=== PATIENT | female | born 1950 | race Caucasian/White ===

== ENCOUNTER 2016-12-02 23:35 | Inpatient (IN) | payer MEDICARE, OTHER ==
[2016-12-03] MEDS ORDERED: HYDROmorphone 1 MG/ML SYRINGE IVP STA ×2 (00:08→01:55)
[2016-12-03] MEDS ORDERED: HYDROmorphone 1 MG/ML SYRINGE ONE ×2 (00:10→01:55)
[2016-12-03] MEDS ORDERED: IOPAMIDOL-300 100 ML VIAL IVP ONE (01:08)
[2016-12-03] MEDS ORDERED: MAGNESIUM HYDROXIDE 2,400 MG/30 ML UDC NG SCH (02:12)
[2016-12-03] MEDS ORDERED: ALBUTEROL NEB 2.5 MG/3 ML INH PRN (02:45)
[2016-12-03] MEDS: LACTATED RINGERS 1,000 ML IV SCH ×3 (02:56→18:18)
[2016-12-03] MEDS ORDERED: hydrALAZINE INJ 20 MG/ML VIAL IVP PRN (03:12)
[2016-12-03] MEDS: INSULIN REGULAR HUMAN 100 UNIT/1 ML 10 ML MDV SUBQ SCH ×5 (03:20→23:53)
[2016-12-03] MEDS: SODIUM CHLORIDE FLUSH 0.9% 10 ML SYRINGE IVP SCH ×3 (05:30→21:17)
[2016-12-03] MEDS ORDERED: INSULIN REGULAR HUMAN 100 UNIT/1 ML 10 ML MDV SUBQ SCH (06:00)
[2016-12-03] MEDS: PANTOPRAZOLE 40 MG VIAL IVP SCH (06:43)
[2016-12-03] MEDS: MORPHINE 2 MG/ML SYRINGE IVP PRN ×4 (06:49→16:56)
[2016-12-03] MEDS ORDERED: FLUTICASONE NASAL SPRAY NAS SCH (09:00)
[2016-12-03] MEDS ORDERED: FLUTICASONE IH SCH (09:00)
[2016-12-03] MEDS ORDERED: SALMETEROL IH SCH (09:00)
[2016-12-03] MEDS: SODIUM CHLORIDE FLUSH 0.9% 10 ML SYRINGE IVP PRN (09:03)
[2016-12-03] MEDS: FLUTICASONE NASAL SPRAY NAS SCH (09:04)
[2016-12-03] MEDS: BUDESONIDE 0.5 MG/2 ML NEB INH SCH ×2 (10:15→22:09)
[2016-12-03] MEDS: FORMOTEROL FUMARATE NEB 20 MCG/2 ML INH SCH ×2 (10:16→22:10)
[2016-12-03] MEDS: ONDANSETRON 4 MG/2 ML VIAL IVP PRN ×2 (11:19→18:51)
[2016-12-03] MEDS ORDERED: PHENOL THROAT SPRAY 177 ML MM ONE (14:07)
[2016-12-03] MEDS: HEPARIN 5,000 UNIT/ML VIAL SUBQ SCH (20:36)
[2016-12-04] MEDS: SODIUM CHLORIDE FLUSH 0.9% 10 ML SYRINGE IVP SCH ×3 (06:16→21:45)
[2016-12-04] MEDS: LACTATED RINGERS 1,000 ML IV SCH ×3 (06:20→23:44)
[2016-12-04] MEDS: SODIUM CHLORIDE FLUSH 0.9% 10 ML SYRINGE IVP PRN (06:21)
[2016-12-04] MEDS: PANTOPRAZOLE 40 MG VIAL IVP SCH (06:21)
[2016-12-04] MEDS: INSULIN REGULAR HUMAN 100 UNIT/1 ML 10 ML MDV SUBQ SCH ×3 (06:25→18:20)
[2016-12-04] MEDS: FORMOTEROL FUMARATE NEB 20 MCG/2 ML INH SCH ×2 (08:00→19:00)
[2016-12-04] MEDS: BUDESONIDE 0.5 MG/2 ML NEB INH SCH ×2 (08:00→19:00)
[2016-12-04] MEDS: FLUTICASONE NASAL SPRAY NAS SCH (09:50)
[2016-12-04] MEDS: HEPARIN 5,000 UNIT/ML VIAL SUBQ SCH ×2 (09:50→21:43)
[2016-12-04] MEDS ORDERED: ACETAMINOPHEN 1,000 MG/100 ML 100 ML IV PRN (14:00)
[2016-12-05] MEDS: INSULIN REGULAR HUMAN 100 UNIT/1 ML 10 ML MDV SUBQ SCH ×3 (00:21→12:01)
[2016-12-05] MEDS: LACTATED RINGERS 1,000 ML IV SCH (02:19)
[2016-12-05] MEDS: SODIUM CHLORIDE FLUSH 0.9% 10 ML SYRINGE IVP SCH ×2 (05:54→14:29)
[2016-12-05] MEDS: PANTOPRAZOLE 40 MG VIAL IVP SCH (06:09)
[2016-12-05] MEDS: SODIUM CHLORIDE FLUSH 0.9% 10 ML SYRINGE IVP PRN (06:09)
[2016-12-05] MEDS ORDERED: BISACODYL 10 MG SUPP PR ONE ×2 (08:12)
[2016-12-05] MEDS ORDERED: LACTULOSE 10 GM /15 ML UDC PO ONE (08:12)
[2016-12-05] MEDS ORDERED: GLYCERIN ADULT SUPP PR ONE (08:12)
[2016-12-05] MEDS ORDERED: SALINE ENEMA 133 ML BOTTLE RC ONE (08:12)
[2016-12-05] MEDS ORDERED: MAGNESIUM HYDROXIDE 2,400 MG/30 ML UDC PO ONE (08:12)
[2016-12-05] MEDS ORDERED: MAGNESIUM CITRATE 296 ML BOTTLE PO ONE (08:12)
[2016-12-05] MEDS: FORMOTEROL FUMARATE NEB 20 MCG/2 ML INH SCH (08:15)
[2016-12-05] MEDS: BUDESONIDE 0.5 MG/2 ML NEB INH SCH (08:15)
[2016-12-05] MEDS ORDERED: POLYETHYLENE GLYCOL 3350 17 GM PACKET PO SCH (09:00)
[2016-12-05] MEDS ORDERED: DOCUSATE SODIUM 250 MG CAPSULE PO SCH (09:00)
[2016-12-05] MEDS ORDERED: SENNA 8.6 MG TABLET PO SCH ×2 (09:00)
[2016-12-05] MEDS: HEPARIN 5,000 UNIT/ML VIAL SUBQ SCH (09:50)
[2016-12-05] MEDS: FLUTICASONE NASAL SPRAY NAS SCH (09:52)
== END 2016-12-05 15:20 | disposition home or self-care (01) | DRG 390 ==
DX: K56.5 Intestinal adhesions [bands] with obstruction (postinfection) (principal); K56.60 Unspecified intestinal obstruction; E11.9 Type 2 diabetes mellitus without complications; I10 Essential (primary) hypertension; E78.5 Hyperlipidemia, unspecified; G47.33 Obstructive sleep apnea (adult) (pediatric); J45.909 Unspecified asthma, uncomplicated; Z90.710 Acquired absence of both cervix and uterus; Z79.82 Long term (current) use of aspirin; Z79.84 Long term (current) use of oral hypoglycemic drugs

== ENCOUNTER 2017-05-31 10:01 | Day surgery (SDC) | payer MEDICARE, OTHER ==
[2017-05-31] MEDS ORDERED: MIDAZOLAM 2 MG/2 ML VIAL IVP ONE (10:02)
[2017-05-31] MEDS ORDERED: fentaNYL 100 MCG/2 ML VIAL IVP ONE (10:02)
[2017-05-31] MEDS ORDERED: LACTATED RINGERS 1,000 ML IV ONE (10:44)
[2017-05-31 14:18] VITALS: BP 134/68
== END 2017-05-31 10:02 | disposition home or self-care (01) ==
LOC: SDS 10:01
PROVIDERS: ATTEND Surgery
PROC: 0DBL8ZX Excision of Transverse Colon, Via Natural or Artificial Opening Endoscopic, Diagnostic (ICD-10-PCS; principal; 2017-05-31 11:15)
DX: D12.3 Benign neoplasm of transverse colon (principal); K57.90 Diverticulosis of intestine, part unspecified, without perforation or abscess without bleeding; K64.8 Other hemorrhoids; E11.9 Type 2 diabetes mellitus without complications; J45.909 Unspecified asthma, uncomplicated; G47.30 Sleep apnea, unspecified; Z79.82 Long term (current) use of aspirin; I10 Essential (primary) hypertension; E78.00 Pure hypercholesterolemia, unspecified; Z79.84 Long term (current) use of oral hypoglycemic drugs
CPT/HCPCS: 45380; J7120

== ENCOUNTER 2017-08-06 09:13 | Outpatient (CLI) | payer MEDICARE, OTHER | END 2017-08-06 09:14 | disposition home or self-care (01) | LOC: SC 09:13 | PROVIDERS: ATTEND Internal Medicine Pulmonary Disease | DX: G47.33 Obstructive sleep apnea (adult) (pediatric) (principal) | CPT/HCPCS: 99213; G0463; 99212 ==

== ENCOUNTER 2018-07-08 12:15 | Emergency (ER) | payer MEDICARE, OTHER ==
--- NOTE | 2018-07-08 13:02 | XRAY Report ---
Reason: crush injury to lt index finger Procedure Date: 07/08/2018 Accession Number: [id number] / [id number] Procedure: XR - Finger(s) LT CPT Code: FULL RESULT: EXAM: LEFT DIGIT RADIOGRAPHY EXAM DATE: 07/08/2018 12:35 PM. CLINICAL HISTORY: Crush injury to left index finger. COMPARISON: None. TECHNIQUE: 3 views. FINDINGS: Bones: Normal. No fracture or bone lesion. Joints: Mild degenerative changes of the DIP joint. Soft Tissues: There is deformity and laceration of the nailbed and probable laceration of the volar finger pad. There are a few particulate radiodensities noted volar and dorsal tissues of the distal finger consistent with debris. IMPRESSION: Distal soft tissue injury including deformity of the nailbed. No associated underlying fracture. RADIA
--- NOTE | 2018-07-08 13:06 | ED Physician Documentation ---
PD HPI UPPER EXT INJURY - Stated complaint Stated Complaint: LFT INDEX FINGER VS DOOR - Chief complaint Chief Complaint: Laceration - History obtained from History obtained from: Patient - History of Present Illness Location: Left, Finger Type of injury: Crush (got caught in door, with injury just to the end of the finger.) Where injury occurred: Home Timing - onset: Today Timing - details: Abrupt onset Worsened by: Palpating Associated symptoms: No: Weakness, Numbness Similar symptoms before: Has not had sx before Recently seen: Not recently seen Review of Systems Neurologic: denies: Focal weakness, Numbness PD PAST MEDICAL HISTORY - Past Medical History Past Medical History: Yes Cardiovascular: Hypertension Respiratory: Asthma Endocrine/Autoimmune: Type 2 diabetes GI: Chronic constipation : None HEENT: None Psych: None Musculoskeletal: Osteoarthritis Derm: None - Past Surgical History Past Surgical History: Yes /GOLF [employer]ER: section, Hysterectomy HEENT: Tonsil/Adenoidectomy - Present Medications Home Medications: Ambulatory Orders Medication Instructions Recorded Confirmed Aspirin [Aspir 81] 81 mg PO DAILY 01/26/13 07/08/18 Fluticasone [Flonase] 1 sprays TERRANCE DAILY 01/26/13 07/08/18 Fluticasone/Salmeterol [Advair 1 each IH DAILY 01/26/13 07/08/18 250-50 Diskus] Multivitamin [Multi-Vitamin Daily] 1 each PO DAILY 01/26/13 07/08/18 hydroCHLOROthiazide [Hydrodiuril] 25 mg PO DAILY 01/26/13 07/08/18 Losartan [Cozaar] 100 mg PO DAILY 12/02/16 07/08/18 Montelukast Sodium 10 mg PO QPM 12/02/16 07/08/18 Sitagliptin Phos/Metformin HCl 1 each PO BID 12/02/16 07/08/18 [Janumet 50-1,000 mg Tablet] Fexofenadine HCl 180 mg PO DAILY 12/03/16 07/08/18 Atorvastatin Calcium [Lipitor] 40 mg PO QPM 12/04/16 07/08/18 Polyethylene Glycol 3350 [Miralax] 17 gm PO DAILY PRN 12/04/16 07/08/18 Loratadine [Claritin] 10 mg PO DAILY 07/08/18 07/08/18 - Allergies Allergies/Adverse Reactions: Allergies Allergy/AdvReac Type Severity Reaction Status Date / Time No Known Drug Allergies Allergy Verified 12/03/16 00:06 - Social History Does the pt smoke?: No Smoking Status: Never smoker Does the pt drink ETOH?: No Does the pt have substance abuse?: No - Immunizations Immunizations are current?: Yes - POLST Patient has POLST: No PD ED PE NORMAL - Vitals Vital signs reviewed: Yes - General General: Alert and oriented X 3, No acute distress, Well developed/nourished - Derm Derm: Normal color, Warm and dry - Extremities Extremities: Other (left index finger tip at nailbed with horizontal lac that goes through nail side to side with some looseness of distal half of the nail. No injury to the nychial fold. Lac at the end of the nailbed with slight gapping of the skin edges. No FB. ) - Neuro Neuro: Alert and oriented X 3, No motor deficit, No sensory deficit Results - Vitals Vitals: Oxygen O2 Source Room air Procedures - Laceration (location) left index finger tip Length in cm: 1 Wound type: Linear, Into subcut fat Neurovascular status: Sensory intact, Motor intact Tendon involvement: No: Tendon Injury Anesthesia: Lidocaine 2% (digital block) Wound Preparation: Irrigated copiously NS Skin layer closure: Nylon, Interrupted, Size #-0 - enter number (4), Sutures - enter # (4) Other: Patient tolerated well, No complications, Neurovascular intact, Dressing applied, Tetanus booster given Complexity: Simple PD MEDICAL DECISION MAKING - ED course Complexity details: considered differential (laceration across mid nailbed with distal half of nail . Lac goes to end of nailbed too. Repair of it with nail tacked down to give healing structure of the bed. ), d/w patient Departure - Departure Disposition: 01 Home, Self Care Clinical Impression: Crush injury to finger Qualifiers: Encounter type: initial encounter Qualified Code(s): S67.10XA - Crushing injury of unspecified finger(s), initial encounter Nailbed laceration, finger Qualifiers: Encounter type: initial encounter Qualified Code(s): S61.319A - Laceration without foreign body of unspecified finger with damage to nail, initial encounter Condition: Stable Record reviewed to determine appropriate education?: Yes Instructions: ED Laceration Hand Follow-Up: JACQUELYN BENITEZ [Primary Care Provider] - Comments: There are very pinpoint avulsion fractures off the bone at the tip of the finger. These need specific treatment and are not in the joint space and should heal without consequence. The sutures should stay in for about 10 days or so to allow the nailbed to heal so that the new nail growth will come out on a smooth track. It is okay to wash and shower. Clean off the wound twice a day with soap and water, or peroxide and water. Apply some antibiotic ointment to it to keep it moist. Also to watch for signs of infection such as purulence, redness or increasing pain. Return to your primary care or the ER at the specified time for suture removal. Tylenol or ibuprofen if needed for pain. Discharge Date/Time: 07/08/18 14:34
[2018-07-08] MEDS ORDERED: LIDOCAINE 2% 10 ML MDV SUBQ STA (13:10)
[2018-07-08] MEDS ORDERED: TETANUS/DIPHTHERIA/PERTUSSIS 0.5 ML SYRINGE IM ONE (14:21)
[2018-07-08 14:36] VITALS: BP 168/88
== END 2018-07-08 14:34 | disposition home or self-care (01) ==
LOC: ED 12:15
DX: S61.311A Laceration without foreign body of left index finger with damage to nail, initial encounter (principal); S67.191A Crushing injury of left index finger, initial encounter; S62.661A Nondisplaced fracture of distal phalanx of left index finger, initial encounter for closed fracture; W23.1XXA Caught, crushed, jammed, or pinched between stationary objects, initial encounter; Y92.009 Unspecified place in unspecified non-institutional (private) residence as the place of occurrence of the external cause; I10 Essential (primary) hypertension; E11.9 Type 2 diabetes mellitus without complications; Z79.82 Long term (current) use of aspirin; Z79.84 Long term (current) use of oral hypoglycemic drugs; Z23 Encounter for immunization
CPT/HCPCS: 12001; 73140; 99282; 99283

== ENCOUNTER 2018-08-21 08:41 | Outpatient (CLI) | payer MEDICARE, OTHER | END 2018-08-21 08:42 | disposition home or self-care (01) | LOC: SC 08:41 | PROVIDERS: ATTEND Nurse Practitioner Family | DX: G47.33 Obstructive sleep apnea (adult) (pediatric) (principal) | CPT/HCPCS: 99214; G0463; 99212 ==

== ENCOUNTER 2019-02-26 16:11 | Outpatient (CLI) | payer MEDICARE, OTHER | END 2019-02-26 16:12 | disposition home or self-care (01) | LOC: SC 16:11 | PROVIDERS: ATTEND Nurse Practitioner Family | DX: G47.33 Obstructive sleep apnea (adult) (pediatric) (principal) | CPT/HCPCS: 99213; G0463; 99212 ==

== ENCOUNTER 2019-05-30 08:50 | Day surgery (SDC) | payer MEDICARE, OTHER ==
[2019-05-30] MEDS ORDERED: CEFAZOLIN SODIUM IN 0.9 % NACL 2 GM/100 ML BAG IV ONE (09:00)
[2019-05-30] MEDS ORDERED: LACTATED RINGERS 1,000 ML IV ONE ×2 (09:25→11:50)
--- NOTE | 2019-05-30 09:45 | ANESTHESIA ---
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 - Procedure R UE wide excision lesion Vital Signs: Temp Pulse Resp BP Pulse Ox 36.4 C L 102 H 20 151/90 H 99 05/30/19 09:00 05/30/19 09:00 05/30/19 09:00 05/30/19 09:00 05/30/19 09:00 Height 5 ft 4 in Weight (kg) 87.3 kg Body Mass Index 34.4 - NPO >8 hours - Is Patient ?: No - Lab Results Current Lab Results: Laboratory Tests 05/30/19 09:21: POC Whole Bld Glucose 203 H Lab results reviewed: Yes Home Medications and Allergies Home Medications: Ambulatory Orders Amlodipine Besylate [Norvasc] 10 mg PO DAILY 05/29/19 Celecoxib [Celebrex] 200 mg PO DAILY PRN 05/29/19 Docusate Sodium 250Mg Capsule [Colace 250Mg Capsule] 250 mg PO BID PRN 05/29/19 Dulaglutide [Trulicity] 0.75 mg SQ OAW 05/29/19 Hydrocodone/Acetaminophen [Dahlgren 5-325 Tablet] 1 each PO Q6H PRN 05/29/19 Metformin HCl 1,000 mg PO BID 05/29/19 Aspirin [Aspir 81] 81 mg PO DAILY 01/26/13 Fluticasone [Flonase] 1 sprays TERRANCE DAILY 01/26/13 Fluticasone/Salmeterol [Advair 250-50 Diskus] 1 each IH BID 01/26/13 Multivitamin [Multi-Vitamin Daily] 1 each PO DAILY 01/26/13 hydroCHLOROthiazide [Hydrodiuril] 50 mg PO DAILY 01/26/13 Losartan [Cozaar] 100 mg PO DAILY 12/02/16 Montelukast Sodium 10 mg PO QPM 12/02/16 Atorvastatin Calcium [Lipitor] 40 mg PO QPM 12/04/16 Polyethylene Glycol 3350 [Miralax] 17 gm PO DAILY PRN 12/04/16 Loratadine [Claritin] 10 mg PO DAILY PRN 07/08/18 Amlodipine Besylate [Norvasc] 10 mg PO DAILY 05/29/19 Celecoxib [Celebrex] 200 mg PO DAILY PRN 05/29/19 Docusate Sodium 250Mg Capsule [Colace 250Mg Capsule] 250 mg PO BID PRN 05/29/19 Dulaglutide [Trulicity] 0.75 mg SQ OAW 05/29/19 Hydrocodone/Acetaminophen [Dahlgren 5-325 Tablet] 1 each PO Q6H PRN 05/29/19 Metformin HCl 1,000 mg PO BID 05/29/19 Allergies/Adverse Reactions: Allergies Allergy/AdvReac Type Severity Reaction Status Date / Time No Known Drug Allergies Allergy Verified 12/03/16 00:06 Anes History & Medical History - Anesthetic History Anesthesia Complications: reports: No previous complications Family history of Anesthesia Complications: Denies Family history of Malignant Hyperthermia: Denies - Medical History Cardiovascular: reports: Hypertension Pulmonary: reports: Asthma Gastrointestinal: reports: Chronic constipation Urinary: reports: None Musculoskeletal: reports: Osteoarthritis Endocrine/Autoimmune: reports: Type 2 diabetes Blood Disorders: reports: None Skin: reports: None Smoking Status: Never smoker - Surgical History Eyes Ears Nose Throat (EENT): Tonsil/Adenoidectomy Gynecologic: section, Hysterectomy Exam General: Alert, Oriented x3, Cooperative Dental: WNL Mouth Openin Fingerbreadth Neck Mobility: Normal Mallampati classification: II Thyromental Distance: 4-6 cm Respiratory: Lungs clear, Normal breath sounds, No respiratory distress Cardiovascular: Regular rate Neurological: Normal speech Mental/Cognitive Status: Alert/Oriented X3, Normal for patient Cognitive Status: Within normal limits Plan Anesthesia Type: General (back up), MAC (Pt had same procedure done in office under local only. Denied any discomfort. Plan is to excise slightly wider. Anesthesia plan discussed, plan to start/finish with light sedation.) Consent for Procedure(s) Verified and Reviewed: Yes Code Status: Attempt Resuscitation ASA classification: 2-Mild systemic disease Is this case an emergency?: No
[2019-05-30] MEDS ORDERED: BUPIVACAINE 0.5% PF 10 ML VIAL ONE (09:56)
[2019-05-30] MEDS ORDERED: BUPIVACAINE 0.5% PF 10 ML VIAL SUBQ ONE ×2 (09:59→11:18)
[2019-05-30] MEDS ORDERED: ONDANSETRON 4 MG/2 ML VIAL IVP PRN (11:50)
[2019-05-30] MEDS ORDERED: HYDROcod/ACETAM 5/325 MG TABLET PO PRN (11:50)
[2019-05-30] MEDS ORDERED: HYDROmorphone 0.5 MG/0.5 ML SYRINGE IVP PRN (11:50)
--- NOTE | 2019-05-30 11:57 | OPERATIVE REPORT ---
Operative Report - General Procedure Date: 05/30/19 Planned Procedure: Wide excision of trichogenic neoplasm (previous biopsy site) Pre-Op Diagnosis: History of trichogenic neoplasm resection with close margins Procedure Performed: Wide excision of trichogenic neoplasm (marked with a short stitch superiorly and a long stitch laterally) Post Op Diagnosis: Same - Procedure Note Primary Surgeon: Arsenio Lerner MD Anesthesia Provider: Alyssa Redd CRNA Anesthesia Technique: Local (30 mL of half percent Marcaine), MAC IV Fluids (mL): 500 Estimated Blood Loss (mL): 5 Drain/Tube Type: Other (None.) Complications: None. - Other Other Information/Narrative: OPERATIVE DESCRIPTION/REPORT: After verbal and written informed consent was obtained detailing the risks of infection, bleeding requiring transfusion with its risks, nerve injury, and , and after I met with the patient confirming the surgery and the site of the surgery, the patient was brought to the operative suite and placed supine on the operating table. Great care was taken to avoid pressure points to prevent pressure necrosis or nerve injury. Monitoring devices were applied along with TEDs and pneumatic compressive stockings (to prevent DVT). The patient received preoperative antibiotics for surgical prophylaxis. Alyssa Redd CRNA sedated and anesthetized the patient for the entire procedure. The patient was prepped and draped in the usual sterile manner. With the patient draped my initials were clearly visible. A "time in" then confirmed that the patient was identified with 3 identifiers (name, date and medical record number), the history and physical was in the chart, the signed consent confirming the procedure was in the chart, the patient was in the correct position, the aforementioned prophylactic measures were in place or given, we had the correct personnel and equipment to complete the procedure and that anesthesia, surgery and nursing were given an opportunity to express any concerns. With the agreement of everyone in the room, we proceeded with the operation. A 6 x 2 cm elliptical incision was made encompassing the previous excision in the center. The skin and subcutaneous tissue was excised using a combination of scalpel as well as Bovie electrocautery. Once the lesion was completely excised it was marked using a short stitch superiorly and a long stitch laterally and placed in formalin to be evaluated by pathology. Meticulous hemostasis was present and the subcutaneous tissues were approximated with 7 3-0 Vicryl simple sutures and the skin incision was approximated with a running 4-0 subcuticular Monocryl. At this point a time out was performed that confirmed that all the counts were correct, the procedure that was performed, the blood loss, the IV fluids administered, and the patients condition. The skin was cleaned of its prep and Dermabond and Steri-Strips were applied. Having tolerated the procedure well, the patient was taken to recovery room in good and stable condition. [email or web address] disclaimer: This document was created in part using voice recognition technology. Because of the inherent limitations of the system ([email or web address] Dictate user manual states that the licensee understands that speech recognition is a statistical process and that recognition errors are inherent in the process), occasional same sounding word substitutions and grammatical errors do occur and persist despite proofreading. Please read this document for context.
[2019-05-30] MEDS ORDERED: HYDROcod/ACETAM 5/325 MG TABLET ONE (12:27)
[2019-05-30 13:06] VITALS: BP 116/69
== END 2019-05-30 08:51 | disposition home or self-care (01) ==
LOC: SDS 08:50
PROVIDERS: ATTEND Surgery
PROC: 0JBD0ZZ Excision of Right Upper Arm Subcutaneous Tissue and Fascia, Open Approach (ICD-10-PCS; principal; 2019-05-30 10:30)
DX: D23.61 Other benign neoplasm of skin of right upper limb, including shoulder (principal); I10 Essential (primary) hypertension; E11.00 Type 2 diabetes mellitus with hyperosmolarity without nonketotic hyperglycemic-hyperosmolar coma (NKHHC); E66.9 Obesity, unspecified; J44.9 Chronic obstructive pulmonary disease, unspecified; G47.30 Sleep apnea, unspecified; Z68.33 Body mass index [BMI] 33.0-33.9, adult; Z79.899 Other long term (current) drug therapy; Z79.84 Long term (current) use of oral hypoglycemic drugs; Z79.82 Long term (current) use of aspirin; Z79.51 Long term (current) use of inhaled steroids
CPT/HCPCS: 11406; 12032; A9270; J0690; J7120

== ENCOUNTER 2019-07-15 09:08 | Outpatient (CLI) | payer MEDICARE, OTHER ==
--- NOTE | 2019-07-18 09:18 | Mammography Report ---
Reason: ANNUAL MAMMO,SELF REF Procedure Date: 07/15/2019 Accession Number: [id number] / [id number] Procedure: ALEXIA - Screening Mammo w/Mars CPT Code: Final Report FULL RESULT: EXAM: Screening Mammo w/Mars DATE: 07/15/2019 9:53 AM CLINICAL HISTORY: Screening encounter. History of benign breast biopsy on the left and right side. History of early menses. Family history of breast cancer in the mother at the age of 60. TECHNIQUE: (B) - Bilateral CC and MLO views were obtained. COMPARISON: 07/10/2018 through 09/09/2014. PARENCHYMAL PATTERN: (A) - The breast(s) demonstrate(s) scattered fibroglandular densities. FINDINGS: The left MLO projection view needs to be repeated for technical reasons. IMPRESSION: Incomplete examination. BI-RADS category 0. RECOMMENDATION: (REPEAT) - left MLO projection. BI-RADS CATEGORY: (0) - Incomplete Examination - need additional evaluation. STANDARD QUALIFYING STATEMENTS: 1. This examination was not reviewed with the aid of Computer-Aided Detection (CAD). 2. A negative or benign imaging report should not preclude biopsy if clinically suspicious findings are present. 3. Dense breasts may obscure an underlying neoplasm. 4. This examination was reviewed with the aid of 3D breast imaging (tomosynthesis).
== END 2019-07-15 09:09 | disposition home or self-care (01) ==
LOC: DI 09:08
DX: Z12.31 Encounter for screening mammogram for malignant neoplasm of breast (principal); Z80.3 Family history of malignant neoplasm of breast
CPT/HCPCS: 77063; 77067

== ENCOUNTER 2019-08-19 13:18 | Outpatient (CLI) | payer MEDICARE, OTHER ==
--- NOTE | 2019-08-19 16:03 | Mammography Report ---
Reason: ROUTINE MAMMO - TECH REPEAT Procedure Date: 08/19/2019 Accession Number: [id number] / [id number] Procedure: ALEXIA - Screening Mammo w/Mars CPT Code: Final Report FULL RESULT: EXAM: Screening Mammo w/Mars DATE: 08/19/2019 1:45 PM CLINICAL HISTORY: Screening examination. Family history of breast cancer in the mother at the age of 60. History of bilateral breast biopsy with benign pathology. History of early menses. TECHNIQUE: (B) - Bilateral CC and MLO views were obtained. Study is interpreted in conjunction with images obtained 07/15/2019. COMPARISON: 07/10/2018 through 09/09/2014. PARENCHYMAL PATTERN: (A) - The breast(s) demonstrate(s) scattered fibroglandular densities. FINDINGS: There are coarse typically benign calcifications. There are no suspicious masses, calcifications, or areas of distortion. IMPRESSION: Benign findings. BI-RADS category 2. RECOMMENDATION: (ANNUAL) - Recommend routine annual screening mammography. BI-RADS CATEGORY: (2) - Benign Findings. STANDARD QUALIFYING STATEMENTS: 1. This examination was not reviewed with the aid of Computer-Aided Detection (CAD). 2. A negative or benign imaging report should not preclude biopsy if clinically suspicious findings are present. 3. Dense breasts may obscure an underlying neoplasm. 4. This examination was reviewed with the aid of 3D breast imaging (tomosynthesis).
== END 2019-08-19 13:19 | disposition home or self-care (01) ==
LOC: DI 13:18
DX: Z12.31 Encounter for screening mammogram for malignant neoplasm of breast (principal); Z80.3 Family history of malignant neoplasm of breast

== ENCOUNTER 2020-03-01 10:49 | Outpatient (CLI) | payer MEDICARE, OTHER ==
[2020-03-01 11:51] VITALS: BP 130/70
--- NOTE | 2020-03-01 11:51 | SLEEP CARE CONSULTATION ---
Information from patient questionnaire entered by Mary Anderson. I have reviewed and concur with the information entered by Mary Anderson. This document represents the service I personally performed and the decisions made by me, Jamia Gunter, RN, MSN, ROCKET ENGINE [employer]. History of Present Illness Service Date and Time: 03/01/2020 1049 Previous diagnosis: Moderate, Obstructive Sleep Apnea-Hypopnea Syndrome AHI: 29.3 Reason for follow up: annual Mask style: Nasal Mask brand: Resmed (Air Fit N20) Backup mask available: Yes (old mask ) Last cushion change: a week ago [facility] - Data Reviewed with Patient Average duration of nightly device use: 7.1 Compliance rate %: 97 Current pressure setting (cmH2O): 8 Average residual AHI: 0.9 Average large leak: 5.5 liters per minute Subjective Patient concerns: denies: aerophagia, mask discomfort (previous Wisp mask more comfortable. - would like to switch back ), air blowing in eyes, mask leak noise, condensation in mask/hose, nasal congestion, dry mouth, nose, throat, epistaxis, other Observed to snore while using device: No Current pressure setting perceived as: comfortable On therapy, patient: reports: sleeping better, awakening more refreshed, being more awake and alert during the day, more rested overall. denies: drowsiness while driving Initial Gifford Sleepiness Scale score: 13 Current Gifford Sleepiness Scale score: 6 Allergies and Home Medications Known drug allergies: No Home medication list reviewed: No (Janumet replced with Bydureon, and metformin reduced ) Review of Systems Review of systems same as previous: Yes Physical Exam Blood Pressure: 130/70 Cuff size: long Heart Rate: 91 O2 Saturation: 98 Height: 5 ft 4 in Weight: 188 lb 6.4 oz Body Mass Index: 32.3 BMI Classification: Obese Impression and Plan 1. Obstructive Sleep Apnea-Hypopnea Syndrome, moderate , with good treatment compliance and good apnea control. On CPAP therapy, the patient has better sleep quality and is more rested overall. Patient reports her old style of mask was more comfortable, Wisp nasal mask small / medium ordered to replace current when due. Patient has lost weight. Currently patients BMI is 34.4 obesity class . Obesity increases the risk of apnea, CPAP pressure requirements and overall health risks especially cardiovascular and diabetes. Thus patient is advised to continue to lose weight. Weight loss can be done with reducing portion size, reducing refined foods and balancing content with vegetables, fruit and protein. In addition tracking food intake will allow awareness of how to modify diet to achieve weight loss goals. Also eating more slowly will allow more awareness of food intake and enjoyment of food while assisting patient to modify intake at each meal. A diet consultation can be helpful in achieving optimal weight loss goals. She has been to the diabetic classes at office. The BMI chart was reviewed. The patient would like to reduce to pounds bringing their BMI down to about . Patient encouraged to discuss their weight loss goals with their PCP and consider a referral to a radiation control worker. The patient's CPAP pressure was changed to 6-8 cmH2O to accommodate future weight loss. Symptoms to report for additional pressure adjustment discussed. Patient's apnea severity and rationale for treatment to reduce apnea, improve sleep quality and reduce cardiovascular and cerebrovascular events was reviewed. I also reviewed the benefit of consistent device use of CPAP for hypertension, diabetes. * * Change auto CPAP pressure to 6-8 cmH2O * New mask style. * Notify me if snoring with mask or feeling that the pressure is too much or too little * Continue to lose weight * Call this office if any problems using CPAP * Return for follow up in 1 year , or sooner if concerns arise Visit Type: In Office Time Spent with Patient (minutes): 25 Provider Statement: I spent 100% of the Face to Face Visit with the patient with greater than 50% spent counseling the patient and coordination of care.
== END 2020-03-01 10:50 | disposition home or self-care (01) ==
LOC: SC 10:49
PROVIDERS: ATTEND Nurse Practitioner Family
DX: G47.33 Obstructive sleep apnea (adult) (pediatric) (principal); E66.9 Obesity, unspecified; Z68.32 Body mass index [BMI] 32.0-32.9, adult
CPT/HCPCS: 99214; G0463; 99212

== ENCOUNTER 2020-08-24 08:48 | Outpatient (CLI) | payer MEDICARE, OTHER ==
--- NOTE | 2020-08-25 09:17 | Mammography Report ---
BILATERAL DIGITAL SCREENING MAMMOGRAM 3D/2D: 08/24/2020 CLINICAL: Family history of breast cancer. Routine screening. Comparison is made to exams dated: 08/19/2019 mammogram, 07/15/2019 mammogram - [facility], 07/10/2018 mammogram - [facility], 09/12/2005 stereotactic biopsy, and 09/12/2005 sp ecimen - [facility]. There are scattered fibroglandular elements in both breasts. There are benign calcifications in both breasts. There also is a biopsy clip in the left breast. No significant masses, calcifications, or other findings are seen in either breast. There has been no significant interval change. IMPRESSION: BENIGN There is no mammographic evidence of malignancy. A 1 year screening mammogram is recommended. This exam was interpreted at Station ID: [id number]. NOTE: For mammograms, a report in lay terms will be sent to the patient. Approximately 15% of breast malignancies will not be visualized mammographically. In the management of a palpable breast mass, a negative mammogram must not discourage biopsy of a clinically suspicious lesion. Electronically Signed By: Sean Clements M.D. [email or web address]:08/24/2020 10:37:21 ACR BI-RADS Category 2: Benign Finding(s) 3342F PARENCHYMAL PATTERN: (A) - The breast(s) demonstrate(s) scattered fibroglandular densities. BI-RADS CATEGORY: (2) - 2 RECOMMENDATION: (ANNUAL) - Recommend routine annual screening mammography. [id number] 1 year screening LATERALITY: (B)
== END 2020-08-24 08:49 | disposition home or self-care (01) ==
LOC: DI.N 08:48
DX: Z12.31 Encounter for screening mammogram for malignant neoplasm of breast (principal); Z80.3 Family history of malignant neoplasm of breast

== ENCOUNTER 2021-03-15 09:59 | Outpatient (CLI) | payer MEDICARE, OTHER ==
--- NOTE | 2021-03-15 11:02 | SLEEP CARE CONSULTATION ---
Information from patient questionnaire entered by Alyssa Chen. I have reviewed and concur with the information entered by Alyssa Chen. This document represents the service I personally performed and the decisions made by , Jodi Mcfarland ARNP. History of Present Illness Service Date and Time: 03/15/2021 0959 Previous diagnosis: Moderate, Obstructive Sleep Apnea-Hypopnea Syndrome AHI: 29.3 (in 2013) Reason for follow up: annual (last seen ) Equipment type: [facility] Mask style: Nasal Mask brand: Respironics (Dreamwear Wisp) Backup mask available: Yes (old mask) Last cushion change: 2 weeks ago Prior sleep studies: Yes Year and Where: 2013 - [facility] Sleep HPI additional information: FREDRICK FERNANDES was diagnosed to have moderate, AHI 29.3, obstructive sleep apnea-hypopnea syndrome and returned today for CPAP therapy annual follow-up. CPAP Compliance Data - Data Reviewed with Patient Average duration of nightly device use: 6 hr 58 min Compliance rate %: 98 (180 days) Current pressure setting (cmH2O): 6-8 Humidity settin Average residual AHI: 0.8 Subjective Patient concerns: reports: condensation in mask/hose (occasional but not often in tubing in morning). denies: aerophagia, mask discomfort, air blowing in eyes, mask leak noise, nasal congestion, dry mouth, nose, throat, epistaxis, other Current pressure setting perceived as: comfortable On therapy, patient: reports: sleeping better, awakening more refreshed, being more awake and alert during the day, more rested overall. denies: drowsiness while driving Initial [place] Sleepiness Scale score: 13 (in 2013) Current [place] Sleepiness Scale score: 4 Allergies and Home Medications Home medication list reviewed: Yes (no changes) Review of Systems Review of systems same as previous: Yes (no changes) Physical Exam Heart Rate: 85 O2 Saturation: 90 Height: 5 ft 4 in Weight: 191 lb Body Mass Index: 32.8 BMI Classification: Obese Impression and Plan 1. Obstructive Sleep Apnea-Hypopnea Syndrome, moderate, with good treatment compliance and excellent apnea control. On CPAP therapy, the patient has better sleep quality and is more rested overall. Patient is very satisfied with her treatment and has significant improvement of her apnea. She feels like the pressure might be a little low when she is sleeping on her side. She feels she cannot breathe as freely. It is just fine when she is on her back. I discussed with and will increase her pressure to 6-9 cmH2O to see if this will reduce air hunger on her side. She was advised to let me know if it is uncomfortable and I will adjust the pressure for comfort. She voiced understanding and agreement with plan of care. Patient's apnea severity and rationale for treatment to reduce apnea, improve sleep quality and reduce cardiovascular and cerebrovascular events was reviewed. I also reviewed the benefit of consistent device use of CPAP for hypertension and diabetes. I encouraged patient to try to lose weight. * Change auto CPAP pressure to 6-9 cmH2O * Notify me if snoring with mask or feeling that the pressure is too much or too little * Attempt to lose weight * Call this office if any problems using CPAP * Return for follow up in 1 year, or sooner if concerns arise Counseling Topics: Spare mask, Weight loss health impact Visit Type: In Office Time Spent with Patient (minutes): 14 Provider Statement: I spent 100% of the Face to Face Visit with the patient with greater than 50% spent counseling the patient and coordination of care.
== END 2021-03-15 10:00 | disposition home or self-care (01) ==
LOC: SC 09:59
PROVIDERS: ATTEND Nurse Practitioner Family
DX: G47.33 Obstructive sleep apnea (adult) (pediatric) (principal); E66.9 Obesity, unspecified; Z68.32 Body mass index [BMI] 32.0-32.9, adult
CPT/HCPCS: 99212; G0463

== ENCOUNTER 2021-09-01 08:49 | Outpatient (CLI) | payer MEDICARE, OTHER ==
--- NOTE | 2021-09-02 08:18 | Mammography Report ---
BILATERAL DIGITAL SCREENING MAMMOGRAM 3D/2D: 09/01/2021 CLINICAL: Family history of breast cancer. Routine screening. Comparison is made to exams dated: 08/24/2020 mammogram, 08/19/2019 mammogram, 07/15/2019 mammogram - [facility], and 07/10/2018 mammogram - [facility]. There are scattered fibroglandular elements in both breasts. There are benign calcifications in both breasts. There also is a biopsy clip in the left breast. No significant masses, calcifications, or other findings are seen in either breast. There has been no significant interval change. IMPRESSION: BENIGN There is no mammographic evidence of malignancy. A 1 year screening mammogram is recommended. This exam was interpreted at Station ID: [id number]. NOTE: For mammograms, a report in lay terms will be sent to the patient. Approximately 15% of breast malignancies will not be visualized mammographically. In the management of a palpable breast mass, a negative mammogram must not discourage biopsy of a clinically suspicious lesion. Electronically Signed By: Chintan markham/manish:09/01/2021 11:24:40 ACR BI-RADS Category 2: Benign Finding(s) 3342F PARENCHYMAL PATTERN: (A) - The breast(s) demonstrate(s) scattered fibroglandular densities. BI-RADS CATEGORY: (2) - 2 RECOMMENDATION: (ANNUAL) - Recommend routine annual screening mammography. [id number] 1 year screening LATERALITY: (B)
== END 2021-09-01 08:50 | disposition home or self-care (01) ==
LOC: DI.N 08:49
DX: Z12.31 Encounter for screening mammogram for malignant neoplasm of breast (principal); Z80.3 Family history of malignant neoplasm of breast

== ENCOUNTER 2022-05-05 14:33 | Outpatient (CLI) | payer MEDICARE, OTHER ==
[2022-05-05 15:03] VITALS: BP 132/76
--- NOTE | 2022-05-05 15:03 | SLEEP CARE CONSULTATION ---
Information from patient questionnaire entered by Tacos Landry. I have reviewed and concur with the information entered by Tacos Landry. This document represents the service I personally performed and the decisions made by me, Jodi Mcfarland ARNP. History of Present Illness Service Date and Time: 05/05/2022 1433 Previous diagnosis: Moderate, Obstructive Sleep Apnea-Hypopnea Syndrome AHI: 29.3 (in 2013) Reason for follow up: annual (ANNUAL, LAST SEEN 03/16) Accompanied by: Spouse Equipment type: CPAP (RESMED) Equipment obtained from: [employer] (getting supplies as needed) Mask style: Nasal Mask brand: Respironics (Wisp) Backup mask available: Yes (old mask) Last cushion change: few days ago [facility] additional information: FREDRICK FERNANDES was diagnosed to have moderate, AHI 29.3, obstructive sleep apnea-hypopnea syndrome and returned today for CPAP therapy annual follow-up. Sleep Study - Results Prior sleep studies: Yes Year and Where: 2013 - [facility] Sleep CPAP Compliance Data - Data Reviewed with Patient Average duration of nightly device use: 6 HOURS, 44 MINUTES Compliance rate %: 97 (11/05/21 TO 05/03/22; 178/180 days used) Current pressure setting (cmH2O): 6-9 Average residual AHI: 0.8 Average large leak: 5.0 L/min Subjective Missed days of use due to: reports: other (fell asleep without it) Patient concerns: denies: aerophagia, mask discomfort, air blowing in eyes, mask leak noise, condensation in mask/hose, nasal congestion, dry mouth, nose, throat, epistaxis, other Observed to snore while using device: No Current pressure setting perceived as: comfortable On therapy, patient: reports: sleeping better, awakening more refreshed, being more awake and alert during the day, more rested overall. denies: drowsiness while driving Initial [place] Sleepiness Scale score: 13 (in 2013) Current [place] Sleepiness Scale score: 4 (05/05/22) Allergies and Home Medications Home medication list reviewed: Yes (no changes) Allergy and home medication list: Allergies No Known Drug Allergies Allergy (Verified 12/03/16 00:06) Review of Systems Review of systems same as previous: Yes (no changes) Physical Exam Vital signs obtained and entered by: AJ LEWIS Blood Pressure: 132/76 (left arm ) Cuff size: regular Heart Rate: 91 O2 Saturation: 97 Height: 5 ft 4 in Weight: 180 lb Weight change since last visit: 11 lb loss Body Mass Index: 30.9 BMI Classification: Obese Impression and Plan 1. Obstructive Sleep Apnea-Hypopnea Syndrome, moderate, with good treatment compliance and excellent apnea control. On CPAP therapy, the patient has better sleep quality and is more rested overall. Patient has significant improvement of her sleep apnea and is satisfied with her CPAP therapy. Patient denies problems with oral dryness, nasal congestion, epistaxis, skin irritation or aerophagia. Patient's apnea severity and rationale for treatment to reduce apnea, improve sleep quality and reduce cardiovascular and cerebrovascular events was reviewed. I also reviewed the benefit of consistent device use of CPAP for hypertension and diabetes. 2. Obesity, unspecified. Currently patients BMI is 30.9. Patient has lost about 11 lbs with a medication change recently. Obesity increases the risk of apnea, CPAP pressure requirements and overall health risks especially cardiovascular and diabetes. Thus patient is advised to continue to try to lose weight. Weight loss can be done with reducing portion size, reducing refined foods and balancing content with vegetables, fruit and whole grain foods. In addition, patient encouraged to get regular exercise. The patient's CPAP pressure range should accommodate some weight loss. * Continue auto CPAP pressure at 6-9 cmH2O * Update supplies * Notify me if snoring with mask or feeling that the pressure is too much or too little * Continue to try to lose weight * Call this office if any problems using CPAP * Return for follow up in 1 year, or sooner if concerns arise Counseling Topics: Spare mask, Weight loss health impact Visit Type: In Office Other Participants: Spouse/Significant Other Time Spent with Patient (minutes): 23 Provider Statement: I spent 100% of the Face to Face Visit with the patient with greater than 50% spent counseling the patient and coordination of care.
== END 2022-05-05 14:34 | disposition home or self-care (01) ==
LOC: SC 14:33
PROVIDERS: ATTEND Nurse Practitioner Family
DX: G47.33 Obstructive sleep apnea (adult) (pediatric) (principal); E66.9 Obesity, unspecified; Z68.30 Body mass index [BMI] 30.0-30.9, adult
CPT/HCPCS: 99213; G0463; 99212

== ENCOUNTER 2023-05-08 08:53 | Outpatient (CLI) | payer MEDICARE, OTHER ==
--- NOTE | 2023-05-08 09:20 | Sleep Patient Instructions ---
Sleep Center Visit Summary - Patient Visit Information Reason for Visit: Annual Visit for PAP therapy - Patient Instructions Additional Instructions: You will continue with CPAP therapy with pressure set at 6-9 cmH2O. A supply prescription will be updated with your DME. An order for another sleep study will be authorized to check diagnosis and severity. We encourage you to continue to try to lose weight. Please follow up with the sleep care office after sleep study. - Clinic Information Contact: [facility] [address] [place] [address] [email or web address] T: [phone]
--- NOTE | 2023-05-08 09:39 | SLEEP CARE CONSULTATION ---
Information from patient questionnaire entered by Bernadette Perera. I have reviewed and concur with the information entered by Bernadette Perera. This document represents the service I personally performed and the decisions made by me, Jodi Mcfarland ARNP. History of Present Illness Service Date and Time: 05/08/2023 0853 Previous diagnosis: Moderate, Obstructive Sleep Apnea-Hypopnea Syndrome AHI: 29.3 (in 2013) Reason for follow up: annual (LAST SEEN 04/2022) Equipment type: CPAP (RESMED 10, s/u 04/2019) Equipment obtained from: [employer] (getting supplies as needed) Mask style: Nasal Mask brand: Respironics (Wisp) Backup mask available: Yes (old mask) Last cushion change: 1.5 weeks Prior sleep studies: Yes Year and Where: 2013 - [facility] Sleep HPI additional information: FREDRICK FERNANDES was diagnosed to have moderate, AHI 29.3, obstructive sleep apnea-hypopnea syndrome and returned today with spouse for CPAP therapy annual follow-up. Sleep Study - Results Prior sleep studies: Yes Year and Where: 2013 - [facility] Sleep CPAP Compliance Data - Data Reviewed with Patient Average duration of nightly device use: 6 HRS 32 MINS Compliance rate %: 96 (11/05/22-05/03/23; 180/180 days used) Current pressure setting (cmH2O): 6-9 Average residual AHI: 0.9 Central apnea: 0.3 Obstructive apnea: 0.4 Average large leak: 7.1 L/min Subjective Patient concerns: reports: nasal congestion (has allergies). denies: aerophagia, mask discomfort, air blowing in eyes, mask leak noise, condensation in mask/hose, dry mouth, nose, throat, epistaxis Observed to snore while using device: No Current pressure setting perceived as: comfortable (with rare high occurences) On therapy, patient: reports: sleeping better, awakening more refreshed, being more awake and alert during the day, more rested overall. denies: drowsiness while driving Initial [place] Sleepiness Scale score: 13 (in 2013) Current [place] Sleepiness Scale score: 3 (05/08/23) Allergies and Home Medications Known drug allergies: Yes Drug allergies reviewed: Yes Home medication list reviewed: Yes (no changes) Allergy and home medication list: Allergies No Known Drug Allergies Allergy (Verified 05/07/23 08:36) Home Medications Medication Instructions Recorded Confirmed Last Taken Type Aspirin [Aspir 81] 81 mg PO DAILY 01/26/13 05/08/23 07/08/18 History Fluticasone [Flonase] 1 sprays TERRANCE DAILY 01/26/13 05/08/23 05/30/19 History Fluticasone/Salmeterol [Advair 1 each IH BID 01/26/13 05/08/23 05/30/19 History 250-50 Diskus] Multivitamin [Multi-Vitamin Daily] 1 each PO DAILY 01/26/13 05/08/23 05/29/19 History hydroCHLOROthiazide [Hydrodiuril] 50 mg PO DAILY 01/26/13 05/08/23 05/29/19 History Losartan [Cozaar] 100 mg PO DAILY 12/02/16 05/08/23 05/30/19 History Montelukast Sodium 10 mg PO QPM 12/02/16 05/08/23 05/30/19 History Atorvastatin Calcium [Lipitor] 40 mg PO QPM 12/04/16 05/08/23 05/29/19 History polyethylene glycoL 3350 [Miralax] 17 gm PO DAILY PRN 12/04/16 05/08/23 05/29/19 History Loratadine [Claritin] 10 mg PO DAILY PRN 07/08/18 05/08/23 05/30/19 History Amlodipine Besylate [Norvasc] 10 mg PO DAILY 05/29/19 05/08/23 05/30/19 History Celecoxib [Celebrex] 200 mg PO DAILY PRN 05/29/19 05/08/23 Unknown History Docusate Sodium 250Mg Capsule 250 mg PO BID PRN 05/29/19 05/08/23 05/29/19 History [Colace 250Mg Capsule] Dulaglutide [Trulicity] 0.75 mg SQ OAW 05/29/19 05/08/23 05/29/19 History Hydrocodone/Acetaminophen [[place] 1 each PO Q6H PRN 05/29/19 05/08/23 Unknown History 5-325 Tablet] Metformin HCl 1,000 mg PO BID 05/29/19 05/08/23 05/29/19 History HYDROcod/ACETAM 5/325 [[place] 5/325] 1 each PO Q4H #5 tablet 05/30/19 05/08/23 Unknown Rx Review of Systems Review of systems same as previous: Yes (no changes) Physical Exam Vital signs obtained and entered by: BERNADETTE Santiago MA Blood Pressure: 141/118 (LEFT ) Cuff size: wrist Heart Rate: 93 O2 Saturation: 98 Height: 5 ft 4 in Weight: 173 lb 9.6 oz Weight change since last visit: 7 lb loss Body Mass Index: 29.7 BMI Classification: Overweight Impression and Plan 1. Obstructive Sleep Apnea-Hypopnea Syndrome, moderate, with good treatment compliance and good apnea control. On CPAP therapy, the patient has better sleep quality and is more rested overall. Patient has significant improvement of their sleep apnea and is satisfied with current CPAP therapy. Patient states she has lost about 30 pounds over the last few years. She is wondering if she still needs to use the CPAP. She continues to use APAP at 6-9 cm H2O. She denies any aerophagia or headaches but states sometimes the pressure does feel a little too high. Her last sleep study was in 2013. Because of her weight loss I think it would be prudent to have her repeat the study. We will see if we can get authorization and she will be notified. She voiced understanding. Patient's apnea severity and rationale for treatment to reduce apnea, improve sleep quality and reduce cardiovascular and cerebrovascular events was reviewed. I also reviewed the benefit of consistent device use of CPAP for hypertension and diabetes. 2. Overweight, unspecified. Currently patients BMI is 29.7. Obesity increases the risk of apnea, CPAP pressure requirements and overall health risks especially cardiovascular and diabetes. Thus patient is advised to continue to try to lose weight. * Continue auto CPAP pressure at 6-9 cmH2O * PSG/HST to re-verify diagnosis and severity * Update supplies * Notify me if snoring with mask or feeling that the pressure is too much or too little * Attempt to lose weight * Call this office if any problems using CPAP * Return for follow up after the sleep study, or sooner if concerns arise Counseling Topics: Spare mask, Weight loss health impact Visit Type: In Office Time Spent with Patient (minutes): 21 Provider Statement: I spent 100% of the Face to Face Visit with the patient with greater than 50% spent counseling the patient and coordination of care.
[2023-05-08 09:47] VITALS: BP 141/118; O2SAT 98
== END 2023-05-08 08:54 | disposition home or self-care (01) ==
LOC: SC 08:53
PROVIDERS: ATTEND Nurse Practitioner Family
DX: G47.33 Obstructive sleep apnea (adult) (pediatric) (principal); E66.3 Overweight; Z68.29 Body mass index [BMI] 29.0-29.9, adult
CPT/HCPCS: 99213; G0463; 99212

== ENCOUNTER 2023-05-28 19:37 | Outpatient (CLI) | payer MEDICARE, OTHER | END 2023-05-28 19:38 | disposition home or self-care (01) | LOC: SC 19:37 | PROVIDERS: ATTEND Nurse Practitioner Family | DX: G47.33 Obstructive sleep apnea (adult) (pediatric) (principal) | CPT/HCPCS: 95810 ==

== ENCOUNTER 2023-06-13 09:28 | Outpatient (CLI) | payer MEDICARE, OTHER ==
--- NOTE | 2023-06-13 09:48 | Sleep Patient Instructions ---
Sleep Center Visit Summary - Patient Visit Information Reason for Visit: Sleep study followup - Patient Instructions Additional Instructions: You were here for follow up of sleep study. You will be continued on CPAP therapy with pressure at 6-9 cmH2O. You should follow up with sleep care in 12 months. You may contact us sooner for any questions or concerns. - Clinic Information Contact: [facility] [address] [place] [id number] [email or web address] T: [phone]
--- NOTE | 2023-06-13 09:54 | SLEEP CARE CONSULTATION ---
Information from patient questionnaire entered by Bernadette Perera. I have reviewed and concur with the information entered by Bernadette Perera. This document represents the service I personally performed and the decisions made by , Jodi Mcfarland ARNP. History of Present Illness Service Date and Time: 06/13/2023927 Accompanied by: Spouse Initial [place] Sleepiness Scale score: 13 (in 2013) Current [place] Sleepiness Scale score: 3 (06/13/23) Additional HPI information: FREDRICK FERNANDES returns for follow up and results of the recently performed polysomnography. Her sleep study showed moderate obstructive sleep apnea with an average AHI of 18.2 and andrea oxygen saturation of 85%. I explained the pathophysiology behind obstructive sleep apnea. We then spent quite a bit of time discussing different treatment options. For mild obstructive sleep apnea, surgery and oral appliance are alternatives to nasal CPAP therapy but in moderate or severe cases, nasal CPAP is the most effective and reliable treatment. I reviewed the impact of weight changes on sleep apnea and strongly recommended losing weight. The patient should continue with the nasal CPAP therapy. Patient does not drink alcohol. Patient was cautioned about risks of drowsy driving until sleepiness symptoms resolve. Patient denies drowsy driving. Sleep Study - Results Type of Sleep Study: Polysomnography (COMPLETED 05/28/23) Prior sleep studies: Yes Year and Where: 2013 - [facility] Sleep Polysomnography/Home Sleep Study results: IMPRESSION: The quality of the study is good. The patient had reduced sleep efficiency due to a prolonged awakening in the middle of the night. The sleep architecture was abnormal for sleep fragmentation and reduced amount of time spent in slow wave sleep (N3). Respiratory monitoring showed moderate obstructive sleep apneahypopnea (AHI = 18.2) associated with frequent arousals, oxyhemoglobin desaturation and mild hypoxia (andrea oxygen saturation of 85%). The respiratory events occurred predominantly during supine sleep (supine AHI = 28.1; non-supine = 9.05). Snore was moderate to loud in intensity. There was no significant periodic leg movement of sleep. Cardiac rhythm was normal sinus rhythm without significant arrhythmia. No abnormal behavior (parasomnia) observed during the night. Allergies and Home Medications Known drug allergies: No Drug allergies reviewed: Yes Home medication list reviewed: Yes (no changes) Allergy and home medication list: Allergies No Known Drug Allergies Allergy (Verified 06/12/23 12:28) Review of Systems Review of systems same as previous: Yes (NO CHANGE) Physical Exam Vital signs obtained and entered by: BERNADETTE Santiago MA Blood Pressure: 120/72 (LEFT ARM) Cuff size: regular Heart Rate: 93 O2 Saturation: 95 Height: 5 ft 4 in Weight: 174 lb 6.4 oz Body Mass Index: 29.9 BMI Classification: Overweight Impression and Plan 1. Obstructive Sleep Apnea-Hypopnea Syndrome, moderate, with lowest oxygen saturation of 85%. She continues to have moderate CONCEPCION although her average AHI has decreased. I recommend she continue with CPAP at current settings of 6-9 cmH2O. Positive pressure therapy could benefit hypertension and diabetes. She voiced understanding and agreement. She states she is getting more dry mouth. She has noted increase in large leaks at last visit. She states she does not change her mask cushion as often as she should. I advised her to try to change more often to reduce leaks can reduce dryness. Oral dryness can be reduced by adjusting humidity setting higher or heated hose lower or by adjusting both settings. Patient advised that chronic oral dryness can affect dental health. She states her dental hygienists recommended Xylomelts at night and this has been helping. 2. Hypoxemia, mild, with a andrea oxygen saturation of 85% and 6 minutes spent under 90%. Her baseline oxygen saturation was normal with an average oxygen saturation of 92%. 3. Overweight, unspecified. Currently patients BMI is 29.9. Obesity increases the risk of apnea, CPAP pressure requirements and overall health risks especially cardiovascular and diabetes. Thus patient is advised to lose weight. * Continue auto CPAP pressure at 6-9 cmH2O * Notify me if snoring with mask or feeling that the pressure is too much or too little * Attempt to lose weight * Call this office if any problems using CPAP * Return for follow up in 1 year, or sooner if concerns arise Counseling Topics: Weight loss health impact Follow up with Sleep Care in: 1 year Visit Type: In Office Time Spent with Patient (minutes): 20 Provider Statement: I spent 100% of the Face to Face Visit with the patient with greater than 50% spent counseling the patient and coordination of care.
[2023-06-13 09:59] VITALS: BP 120/72; O2SAT 95
== END 2023-06-13 09:29 | disposition home or self-care (01) ==
LOC: SC 09:28
PROVIDERS: ATTEND Nurse Practitioner Family
DX: G47.33 Obstructive sleep apnea (adult) (pediatric) (principal); R09.02 Hypoxemia; E66.3 Overweight; Z68.29 Body mass index [BMI] 29.0-29.9, adult
CPT/HCPCS: 99213; G0463; 99212

== ENCOUNTER 2023-10-05 09:04 | Day surgery (SDC) | payer MEDICARE, OTHER ==
[~2023-10-05 09:04] MED LIST: PROPOFOL 500 MG/50 ML 500 MG/50 ML VIAL ONE
[2023-10-05] MEDS: LACTATED RINGERS 1,000 ML IV ONE (09:26)
--- NOTE | 2023-10-05 09:45 | ANESTHESIA ---
Pre-Anesthesia VS, & Labs - Diagnosis history of polyps - Procedure colonoscopy Vital Signs: Temp Pulse Resp BP Pulse Ox O2 Flow Rate 36.6 C 98 16 142/85 H 98 0 10/05/23 09:27 10/05/23 09:27 10/05/23 09:27 10/05/23 09:27 10/05/23 09:27 10/05/23 09:27 Height: 5 ft 4 in Weight (kg): 78.6 kg Body Mass Index: 29.7 BMI Classification: Overweight - NPO >8 hours - Is Patient ?: No Home Medications and Allergies Home Medications: Ambulatory Orders Cholecalciferol [Vitamin D3] 5,000 unit PO DAILY 10/04/23 Fluticasone [Flonase] 2 sprays TERRANCE BID 01/26/13 Fluticasone/Salmeterol [Advair 250-50 Diskus] 1 each IH BID 01/26/13 Multivitamin [Multi-Vitamin Daily] 1 each PO DAILY 01/26/13 hydroCHLOROthiazide [Hydrodiuril] 50 mg PO DAILY 01/26/13 Losartan [Cozaar] 100 mg PO DAILY 12/02/16 Montelukast Sodium 10 mg PO QPM 12/02/16 Atorvastatin Calcium [Lipitor] 40 mg PO QPM 12/04/16 polyethylene glycoL 3350 [Miralax] 17 gm PO DAILY PRN 12/04/16 Loratadine [Claritin] 10 mg PO DAILY PRN 07/08/18 Amlodipine Besylate [Norvasc] 10 mg PO DAILY 05/29/19 Celecoxib [Celebrex] 200 mg PO DAILY PRN 05/29/19 Docusate Sodium 250Mg Capsule [Colace 250Mg Capsule] 200 mg PO BID PRN 05/29/19 Dulaglutide [Trulicity] 0.75 mg SQ OAW 05/29/19 Metformin HCl 500 mg PO BID 05/29/19 Cholecalciferol [Vitamin D3] 5,000 unit PO DAILY 10/04/23 Allergies/Adverse Reactions: Allergies Allergy/AdvReac Type Severity Reaction Status Date / Time No Known Drug Allergies Allergy Verified 06/13/23 09:31 Anes History & Medical History - Anesthetic History Anesthesia Complications: reports: No previous complications - Medical History Cardiovascular: reports: Hypertension Pulmonary: reports: Asthma Gastrointestinal: reports: Chronic constipation Urinary: reports: None Neuro: reports: None Musculoskeletal: reports: Osteoarthritis Endocrine/Autoimmune: reports: Type 2 diabetes Blood Disorders: reports: None Skin: reports: None Smoking Status: Never smoker Psychosocial: reports: No issues indicated History of Cancer?: No - Surgical History Eyes Ears Nose Throat (EENT): reports: Tonsil/Adenoidectomy Gynecologic: reports: section, Hysterectomy Exam General: Alert, Oriented x3, Cooperative, No acute distress Dental: WNL Mouth Openin Fingerbreadth Neck Mobility: Normal Mallampati classification: II Thyromental Distance: 4-6 cm Mental/Cognitive Status: Alert/Oriented X3, Normal for patient Plan Anesthesia Type: General, Total IV Consent for Procedure(s) Verified and Reviewed: Yes Code Status: Attempt Resuscitation ASA classification: 3-Severe systemic disease Is this case an emergency?: No
[2023-10-05] MEDS: LACTATED RINGERS 400 ML IV ONE ×2 (10:46→11:09)
[2023-10-05 11:31] VITALS: BP 126/76; O2SAT 99
--- NOTE | 2023-10-05 12:48 | ANESTHESIA POST OP EVALUATION ---
Anesthesia Post Eval - Post Anesthesia Eval Vitals: Last Vital Signs Temp 36.6 C 10/05/23 11:10 Pulse 92 10/05/23 11:10 Resp 16 10/05/23 11:10 BP 126/76 10/05/23 11:10 Pulse Ox 99 10/05/23 11:10 O2 Flow Rate 0 10/05/23 09:27 CV Function Including HR & BP: Stable Pain Control: Satisfactory Nausea & Vomiting: Negative Mental Status: Baseline Respiratory Status: Airway Patent Hydration Status: Satisfactory Anesthesia Complications: None
== END 2023-10-05 09:05 | disposition home or self-care (01) ==
LOC: SDS 09:04
PROVIDERS: ATTEND Surgery
PROC: 0DBN8ZZ Excision of Sigmoid Colon, Via Natural or Artificial Opening Endoscopic (ICD-10-PCS; 2023-10-05)
PROC: 0DBH8ZZ Excision of Cecum, Via Natural or Artificial Opening Endoscopic (ICD-10-PCS; 2023-10-05)
PROC: 0DBK8ZZ Excision of Ascending Colon, Via Natural or Artificial Opening Endoscopic (ICD-10-PCS; principal; 2023-10-05 10:45)
DX: Z12.11 Encounter for screening for malignant neoplasm of colon (principal); D12.5 Benign neoplasm of sigmoid colon; D12.0 Benign neoplasm of cecum; D12.2 Benign neoplasm of ascending colon; K57.30 Diverticulosis of large intestine without perforation or abscess without bleeding; E11.9 Type 2 diabetes mellitus without complications; Z79.84 Long term (current) use of oral hypoglycemic drugs; Z86.010 Personal history of colon polyps; Z79.85 Long-term (current) use of injectable non-insulin antidiabetic drugs
CPT/HCPCS: 45380; 45385; J7120